=== PATIENT | female | born 1990 | race Caucasian/White ===

== ENCOUNTER → 2017-08-06 | Outpatient (REF) | payer BC | LOC: M SFHCLERA 11:41 | DX: R10.84 Generalized abdominal pain (principal) | CPT/HCPCS: 87086 ==

== ENCOUNTER → 2017-11-05 | Outpatient (REF) | payer BC | LOC: M LAB REF 17:33 | DX: Z12.4 Encounter for screening for malignant neoplasm of cervix (principal) | CPT/HCPCS: G0123 ==

== ENCOUNTER → 2018-02-04 | Outpatient (REF) | payer BC ==
[2018-02-04 20:42] LABS: ANION GAP 9 MEQ/L (8-16); BLOOD UREA NITROGEN 18 MG/DL (7-18); CALCIUM LEVEL 8.8 MG/DL (8.5-10.1); CARBON DIOXIDE LEVEL 28 MEQ/L (21-32); CHLORIDE LEVEL 104 MEQ/L (98-107); CREATININE FOR GFR 0.76 MG/DL (0.55-1.30); GLOMERULAR FILTRATION RATE > 60.0 (>60); GLUCOSE, FASTING 82 MG/DL (70-100); POTASSIUM SERUM 4.2 MEQ/L (3.5-5.1); SODIUM LEVEL 141 MEQ/L (136-145)
== END ==
LOC: M SFHCLERA 17:20
DX: F43.22 Adjustment disorder with anxiety (principal)
CPT/HCPCS: 84443

== ENCOUNTER → 2018-08-14 | Outpatient (CLI) | payer OTHER ==
[2018-08-15 12:10] LABS: FOLLICLE STIMULATING HORMONE 13.6 mIU/mL; LUTEINIZING HORMONE 15.8 mIU/mL; PROGESTERONE 1.16 NG/ML
[2018-08-15 14:50] LABS: PROLACTIN 11.9 NG/ML
== END ==
LOC: M LRY 17:12
PROVIDERS: ATTEND Specialist
DX: N93.8 Other specified abnormal uterine and vaginal bleeding (principal)

== ENCOUNTER → 2018-09-23 | Outpatient (CLI) | payer OTHER ==
[2018-09-23 13:20] LABS: BASO % 0.2 % (0.0-1.0); EOS # 0.1 10^3/uL (0.0-0.50); EOS % 0.7 % (0.0-3.0); HEMOGLOBIN 12.2 g/dl (12.0-15.5); LYMPH # 2.2 10^3/uL (1.5-6.5); LYMPH % 26.2 % (24.0-44.0); MEAN CORPUSCULAR HEMOGLOBIN 29.2 pg (27.0-33.0); MEAN CORPUSCULAR VOLUME 88.5 fl (80.0-96.0); MONO # 0.8 10^3/uL (0.0-0.8); MONO % 9.5 % (0.0-5.0); NEUTROPHILS # 5.2 10^3/uL (1.8-7.7); NEUTROPHILS % 63.3 % (36.0-66.0); PLATELET COUNT, AUTOMATED 257 10^3/uL (150-450); RED BLOOD COUNT 4.18 10^6/uL (4.00-5.40); WHITE BLOOD COUNT 8.3 10^3/uL (4.0-10.0)
[2018-09-23 14:45] LABS: CHLAMYDIA DNA AMPLIFICATION NEGATIVE (NEGATIVE); GC DNA AMPLIFICATION NEGATIVE (NEGATIVE)
[2018-09-24 10:56] LABS: HEPATITIS C VIRUS ABY INDEX 0.1 INDEX (<0.8); HIV 1&2 SCREEN CENTAUR NEGATIVE (NEGATIVE); RUBELLA IgG QUALITATIVE IMMUNE (IMMUNE)
== END ==
LOC: M SMT 09:32
PROVIDERS: ATTEND Specialist
DX: Z34.81 Encounter for supervision of other normal pregnancy, first trimester (principal); Z3A.01 Less than 8 weeks gestation of pregnancy; Z36.89 Encounter for other specified antenatal screening

== ENCOUNTER → 2018-10-29 | Outpatient (CLI) | payer OTHER | LOC: M SMT 13:03 | PROVIDERS: ATTEND Specialist | DX: Z34.81 Encounter for supervision of other normal pregnancy, first trimester (principal); Z3A.00 Weeks of gestation of pregnancy not specified ==

== ENCOUNTER → 2018-12-11 | Outpatient (CLI) | payer OTHER ==
--- NOTE | 2018-12-11 19:16 | REP ---
Obstetric sonography: History: Supervision of for anatomy. Findings: Scanning through the gravid uterus demonstrates a viable single intrauterine gestation in variable lie. motion is observed and heart rate is recorded at 150 beats per minute. A posterior grade 1 placenta is seen without evidence of previa. Amniotic fluid is subjectively normal. No extrauterine abnormalities observed. There is a small left sided choroid plexus cyst. No other abnormality is observed. The following anatomic structures are identified and felt to be sonographically unremarkable: cranium, cavum, cerebellum and posterior fossa, face and profile, lungs, four-chamber heart with left and right ventricular outflow tract views, diaphragm, left-sided stomach, abdominal wall cord insertion, three-vessel umbilical cord, kidneys and bladder, spine, upper and lower extremities. Biometry chart: BPD 4.5 cm = 19 weeks 4 days HC 16.5 cm = 19 weeks 1 day AC 15.0 cm = 20 weeks 1 day FL 3.1 cm = 19 weeks 4 days HL 2.9 cm = 19 weeks 4 days HC/AC ratio normal 1.10. Cephalic index normal 0.76. Estimated weight 315 grams, 0 pounds 11 ounces, 91st percentile for 18 weeks 5 days. Impression: Viable single intrauterine gestation at 19 weeks 4 days by today's composite sonographic criteria. STEPHANIE by today's sonography May 03, 2019. A small left choroid plexus cyst is seen. anatomic survey is otherwise negative and felt to be complete. Electronically Signed by Brandyn Santamaria MD 12/11/2018 08:01 P
== END ==
LOC: M RAD 16:43
PROVIDERS: ATTEND Specialist
DX: Z34.82 Encounter for supervision of other normal pregnancy, second trimester (principal); Z3A.19 19 weeks gestation of pregnancy

== ENCOUNTER → 2019-01-21 | Outpatient (REF) | payer OTHER | LOC: M LAB REF 17:07 | PROVIDERS: ATTEND Advanced Practice Midwife | DX: Z34.82 Encounter for supervision of other normal pregnancy, second trimester (principal) ==

== ENCOUNTER → 2019-02-06 | Outpatient (CLI) | payer OTHER ==
[2019-02-06 17:13] LABS: BASO % 0.3 % (0.0-1.0); EOS # 0.1 10^3/uL (0.0-0.50); EOS % 1.1 % (0.0-3.0); HEMATOCRIT 34.8 % (36.0-47.0); HEMOGLOBIN 11.4 g/dl (12.0-15.5); LYMPH # 1.7 10^3/uL (1.5-6.5); LYMPH % 15.4 % (24.0-44.0); MEAN CORPUSCULAR HEMOGLOBIN 30.7 pg (27.0-33.0); MEAN CORPUSCULAR HGB CONC 32.8 g/dl (32.0-36.5); MEAN CORPUSCULAR VOLUME 93.8 fl (80.0-96.0); MONO # 0.8 10^3/uL (0.0-0.8); MONO % 7.4 % (0.0-5.0); NEUTROPHILS # 8.1 10^3/uL (1.8-7.7); NEUTROPHILS % 75.1 % (36.0-66.0); PLATELET COUNT, AUTOMATED 248 10^3/uL (150-450); RED BLOOD COUNT 3.71 10^6/uL (4.00-5.40); WHITE BLOOD COUNT 10.8 10^3/uL (4.0-10.0)
== END ==
LOC: M LRY 10:50
PROVIDERS: ATTEND Advanced Practice Midwife
DX: Z34.82 Encounter for supervision of other normal pregnancy, second trimester (principal); Z36.89 Encounter for other specified antenatal screening

== ENCOUNTER → 2019-04-14 | Outpatient (CLI) | payer OTHER | LOC: M SMT 15:58 | PROVIDERS: ATTEND Specialist | DX: Z36.89 Encounter for other specified antenatal screening (principal) ==

== ENCOUNTER 2019-05-07 19:11 | Inpatient (IN) | payer OTHER ==
[2019-05-07] VITALS (8 sets, daily range): BP systolic 118–160; BP diastolic 59–80
[~2019-05-07] VITALS: Ht 162.6 cm; Wt 95.8 kg
[2019-05-07] MEDS ORDERED: LACTATED RINGER'S 1000 ML IV STA (19:50)
[2019-05-07] MEDS: LR 1,000 ML IV SCH (20:03)
[2019-05-07] MEDS ORDERED: PRENTAB77 PO (20:11)
[2019-05-07] MEDS ORDERED: GNP250TA9 PO (20:11)
[2019-05-07] MEDS ORDERED: ASPI81TA85 PO (20:11)
[2019-05-07] MEDS ORDERED: TUMS500C PO (20:11)
[2019-05-07 20:16] LABS: HEMOGLOBIN 11.8 g/dl (12.0-15.5); RED BLOOD COUNT 3.91 10^6/uL (4.00-5.40); WHITE BLOOD COUNT 12.1 10^3/uL (4.0-10.0)
[2019-05-07 20:17] LABS: MEAN CORPUSCULAR HEMOGLOBIN 30.2 pg (27.0-33.0); MEAN CORPUSCULAR HGB CONC 33.7 g/dl (32.0-36.5); MEAN CORPUSCULAR VOLUME 89.5 fl (80.0-96.0); PLATELET COUNT, AUTOMATED 232 10^3/uL (150-450)
[2019-05-07] MEDS: miSOPROStol 50 MCG 1/2 TAB (S0191) PO SCH (20:34)
[2019-05-07 20:47] LABS: ALT/SGPT 17 U/L (12-78); BILIRUBIN,TOTAL 0.4 MG/DL (0.2-1.0); CREATININE FOR GFR 0.54 MG/DL (0.55-1.30); GLOMERULAR FILTRATION RATE > 60.0 (>60); LDH LACTATE DEHYDROGENASE 218 U/L (84-246); URIC ACID 4.6 MG/DL (2.6-6.0)
[2019-05-07 22:01] LABS: CREATININE,RANDOM URINE 73.5 MG/DL
[2019-05-08] VITALS (52 sets, daily range): BP systolic 87–207; BP diastolic 51–88
[2019-05-08] MEDS: miSOPROStol 50 MCG 1/2 TAB (S0191) PO SCH (02:58)
[2019-05-08] MEDS ORDERED: LR 1,000 ML IV SCH (08:04)
--- NOTE | 2019-05-08 08:04 | IPNPDOC ---
Text Note Date of Service The patient was seen on 05/08/19. NOTE Progress Irregular mild UC, pt states she can feel them at this time Cat I tracing SVE /-2 Cooks catheter placed Will start pitocin after breakfast VS,Fishbone, I+O VS, Fishbone, I+O Laboratory Tests 05/07/19 20:04 Vital Signs Date Time Temp Pulse Resp B/P (MAP) Pulse Ox O2 Delivery O2 Flow Rate FiO2 05/08/19 06:38 76 18 132/64 (86) 05/08/19 05:35 97.9 I&O- Last 24 Hours up to 6 AM 05/08/19 06:00 Intake Total 500 ml Balance 500 ml Madison Melgar CNM May 08, 2019 08:04
[2019-05-08] MEDS ORDERED: OXYTOCIN DRIP 30 UNITS in IV 1 EA IV SCH (08:15)
[2019-05-08] MEDS ORDERED: PROMETHAZINE INJ 25 MG/ML VIAL (J2550) IV ONE (09:30)
[2019-05-08] MEDS ORDERED: BUTORPHANOL 2 MG/ML INJ (J0595) IV ONE (09:30)
[2019-05-08] MEDS: LR 1,000 ML IV SCH (09:54)
[2019-05-08] MEDS ORDERED: FENTANYL 2MCG/ML ROPIVACAINE 0.2% IN 0.9% NACL 100ML IVBAG As Ordered ONE (11:53)
[2019-05-08 12:33] LABS: HEMATOCRIT 37.9 % (36.0-47.0); HEMOGLOBIN 12.4 g/dl (12.0-15.5); MEAN CORPUSCULAR HEMOGLOBIN 29.7 pg (27.0-33.0); MEAN CORPUSCULAR HGB CONC 32.7 g/dl (32.0-36.5); MEAN CORPUSCULAR VOLUME 90.9 fl (80.0-96.0); PLATELET COUNT, AUTOMATED 224 10^3/uL (150-450); RED BLOOD COUNT 4.17 10^6/uL (4.00-5.40)
[2019-05-08] MEDS ORDERED: ONDANSETRON 4MG/2ML VIAL (J2405) IV PRN (13:30)
[2019-05-08] MEDS ORDERED: REFRIGERATOR IV KEYS XX PRN (13:30)
[2019-05-08] MEDS ORDERED: diphenhydrAMINE INJ 50MG/ML VIAL (J1200) IV PRN (13:30)
[2019-05-08] MEDS ORDERED: FENTANYL/ROPIVACAINE/NACL BAG 100 ML EPIDURAL SCH (13:30)
[2019-05-08] MEDS ORDERED: EPIDURAL/PCA KEYS XX PRN (13:30)
[2019-05-08] MEDS ORDERED: NALOXONE INJ 0.4 MG/1 ML VIAL (J2310) IV PRN (13:30)
[2019-05-08] MEDS ORDERED: LACTATED RINGER'S 1000 ML IV PRN (13:30)
[2019-05-08] MEDS ORDERED: ePHEDrine SULFATE 25 MG/5 ML(5MG/ML) SYRINGE IV PRN (13:30)
[2019-05-08] MEDS ORDERED: EPIDURAL COMMENT XX SCH (13:30)
--- NOTE | 2019-05-08 17:29 | IPNPDOC ---
Text Note Date of Service The patient was seen on 05/08/19. NOTE Comfortable with epidural. Reports feeling pressure Pitocin @ 6mu UC 3-4 minutes x 60+ seconds FH 145, Cat I SVE 9/100/-1, AROM moderate clear fluids VS,Fishbone, I+O VS, Fishbone, I+O Laboratory Tests 05/07/19 20:04 05/08/19 12:23 Vital Signs Date Time Temp Pulse Resp B/P (MAP) Pulse Ox O2 Delivery O2 Flow Rate FiO2 05/08/19 16:46 114 18 129/58 (81) 05/08/19 15:53 99.7 05/08/19 09:54 Room Air I&O- Last 24 Hours up to 6 AM 05/08/19 06:00 Intake Total 500 ml Balance 500 ml Madison Melgar CNM May 08, 2019 17:29
[2019-05-08 23:23] LABS: CORD GAS ABE A -8.3; CORD GAS HCO3 A 19.7 MEQ/L; CORD GAS O2 SAT A 46.8 %; CORD GAS PCO2 A 49.2 mmHg; CORD GAS PH A 7.22 UNITS; CORD GAS PO2 A 23.7 mmHg; CORD GAS SBC A 16.8 MEQ/L; CORD GAS TCO2 A 21.2 MEQ/L
[2019-05-08 23:23] LABS: CORD GAS ABE V -5.6; CORD GAS HCO3 V 17.8 MEQ/L; CORD GAS PCO2 V 29.8 mmHg; CORD GAS PH V 7.395 UNITS; CORD GAS SBC V 19.6 MEQ/L; CORD GAS TCO2 V 18.8 MEQ/L
[2019-05-08] MEDS ORDERED: ceFAZolin 2 GM/D5W 50 ML IV BAG (J0690 PER 500MG) As Ordered ONE (23:50)
[2019-05-09] VITALS (16 sets, daily range): BP systolic 111–137; BP diastolic 60–84
[2019-05-09] MEDS ORDERED: ceFAZolin SOD 2 GM in IV 1 EA IV ONE ×2
[2019-05-09] MEDS ORDERED: MOM 30ML SUSPENSION UDC PO PRN (00:15)
[2019-05-09] MEDS ORDERED: MEASLES,MUMPS,RUBELLA VACCINE INJ (MMR-II) (90707) SC SCH (00:15)
[2019-05-09] MEDS ORDERED: METHYLERGONOVINE MALEATE 0.2 MG TAB PO PRN (00:15)
[2019-05-09] MEDS ORDERED: DIBUCAINE 1% OINTMENT 30GM TOP PRN (00:15)
[2019-05-09] MEDS ORDERED: ANUSOL HC CREAM 30GM TOP PRN (00:15)
[2019-05-09] MEDS ORDERED: ACETAMINOPHEN TAB 650MG DOSE (2X325MG) PO PRN (00:15)
--- NOTE | 2019-05-09 00:25 | DNPDOC ---
[facility] Delivery Note Delivery Note DATE OF DELIVERY: 05/08/2019 PREDELIVERY DIAGNOSIS: 39-6/7 weeks' gestation and labor. POST DELIVERY DIAGNOSIS: Delivered. PROCEDURE: Spontaneous vaginal delivery. PROVIDER: Madison Melgar CNM ANESTHESIA: Epidural. ESTIMATED BLOOD LOSS: 1650 mL. FINDINGS: 8 pound 11 ounce, 3950gm female , Score 9/9, no nuchal cord. Compound presentation with right posterior arm DELIVERY SUMMARY: Patient is a 29-year-old 2 now para 1-0-1-1 who was admitted to labor and delivery for induction of labor due to gestational hypertension. She received misoprostol, cooks catheter with pitocin and labor did ensue. She utilized an epidural for labor coping. AROM moderate clear fluid 1724. FD 2130. Viable female child delivered without difficulty, GERMAIN restituting to ROP with compound right posterior arm at 2255. Spontaneous respirations, transitioned on maternal abdomen. Cord gases obtained and are pending. Cord doubly clamped and cut by FOB under my direction once pulsations ceased. Apgars 9/9. Placenta delivered whipple, intact with 3v cord 2306. Brisk bleeding persisted despite bimanual massage and IV pitocin. Misoprostol 1000mcg NJ given with good control of bleeding. 4th degree perineal laceration noted. Dr Darby requested to repair. Total EBL following repair 1650ml. Sponge, sharp and instrument count correct at close of procedure. Madison Melgar CNM May 08, 2019 23:26
[2019-05-09] MEDS ORDERED: METHYLERGONOVINE MALEATE 0.2 MG/ML VIAL (J2210) IM ONE (01:00)
[2019-05-09] MEDS ORDERED: miSOPROStol 200 MCG TAB (S0191) PR ONE (01:00)
[2019-05-09] MEDS ORDERED: RHOGAM 300 MCG (1500 IU) INJ (J2790) IM SCH (01:00)
[2019-05-09] MEDS ORDERED: OXYTOCIN DRIP 30 UNITS in IV 1 EA IV SCH (01:00)
[2019-05-09] MEDS ORDERED: ACETAMINOPHEN 500 MG TAB PO PRN (01:00)
[2019-05-09] MEDS ORDERED: IBUPROFEN 800 MG TAB As Ordered ONE (02:14)
[2019-05-09] MEDS: IBUPROFEN 800 MG TAB PO SCH ×3 (02:17→22:14)
[2019-05-09 06:51] LABS: HEMATOCRIT 27.5 % (36.0-47.0); MEAN CORPUSCULAR HEMOGLOBIN 30.2 pg (27.0-33.0); MEAN CORPUSCULAR HGB CONC 33.1 g/dl (32.0-36.5); MEAN CORPUSCULAR VOLUME 91.4 fl (80.0-96.0); PLATELET COUNT, AUTOMATED 181 10^3/uL (150-450); RED BLOOD COUNT 3.01 10^6/uL (4.00-5.40); WHITE BLOOD COUNT 20.6 10^3/uL (4.0-10.0)
[2019-05-09 06:54] LABS: HEMOGLOBIN 9.1 g/dl (12.0-15.5)
[2019-05-09] MEDS: METHYLERGONOVINE MALEATE 0.2 MG TAB PO SCH ×4 (07:20→23:45)
--- NOTE | 2019-05-09 07:59 | IPNPDOC ---
Text Note Date of Service The patient was seen on 05/09/19. NOTE PP #1 Adequate pain management. Reports mild dizziness. to breast. VSS, afebrile normotensive Breasts soft, nipples intact Fundus firm, NT, @U Perineum well approximated without edema Lochia rubra light without odor PP #1 Enc rest, PO intake, slow increase of activity, maintain ice to perineum first 24hrs VS,Fishbone, I+O VS, Fishbone, I+O Laboratory Tests 05/08/19 12:23 05/09/19 06:38 Vital Signs Date Time Temp Pulse Resp B/P (MAP) Pulse Ox O2 Delivery O2 Flow Rate FiO2 05/09/19 06:52 80 121/73 (89) 05/09/19 03:22 99.1 16 05/08/19 09:54 Room Air I&O- Last 24 Hours up to 6 AM 05/09/19 06:00 Intake Total 2431 ml Output Total 1850 ml Balance 581 ml Madison Melgar CNM May 09, 2019 07:59
[2019-05-09] MEDS: LR 1,000 ML IV SCH ×2 (08:10→15:45)
[2019-05-09] MEDS: DOCUSATE SODIUM 100 MG CAP PO SCH ×2 (09:08→22:13)
[2019-05-09] MEDS: PRENATAL VITAMINS CHEWABLE TABLET PO SCH (09:08)
[2019-05-10 06:00] VITALS: BP 127/58
[2019-05-10] MEDS: IBUPROFEN 800 MG TAB PO SCH ×2 (06:02→13:58)
[2019-05-10] MEDS: PRENATAL VITAMINS CHEWABLE TABLET PO SCH (09:26)
[2019-05-10] MEDS: DOCUSATE SODIUM 100 MG CAP PO SCH (09:26)
--- NOTE | 2019-05-10 09:47 | RO ---
DATE OF PROCEDURE: 05/09/2019 PREOPERATIVE DIAGNOSIS: 1. Status post spontaneous vaginal delivery. 2. Fourth-degree peritoneal laceration. POSTOPERATIVE DIAGNOSIS: 1. Status post spontaneous vaginal delivery. 2. Fourth-degree peritoneal laceration. PROCEDURE PERFORMED: Repair of a 4 degree laceration. SURGEON: Kathryn Darby MD PREOPERATIVE ANTIBIOTICS: 2 grams of Ancef. ESTIMATED BLOOD LOSS: Total including delivery 1650 mL. ANESTHESIA: Epidural. DESCRIPTION OF OPERATION: After informed consent was obtained, the patient was examined and she was noted to have a fourth degree laceration with a small area of the vaginal mucosa involved. The laceration was cleaned. Ludlow was identified. The internal anal sphincter was then identified with Allis clamps. Three stitches of #0 Vicryl was stitched to the internal anal sphincter. These three stitches were tagged and this was done with #0 Vicryl. The vaginal mucosa was then reapproximated with #4-0 Monocryl and three stitches on the internal anal sphincter were then tied. The external anal sphincter was then reapproximated with #0 Vicryl. The remainder of the laceration was repaired with #3-0 Vicryl Rapide. Rectal exam was performed and the end of the repair. The patient tolerated the repair.
[2019-05-10 10:28] VITALS: BP 127/67
== END 2019-05-10 15:55 | disposition home or self-care (01) | DRG 768 ==
LOC: M LDI 19:11 → M OBS 05-09 10:44
PROVIDERS: ADMIT Obstetrics & Gynecology; ATTEND Obstetrics & Gynecology
PROC: 3E0P7GC Introduction of Other Therapeutic Substance into Female Reproductive, Via Natural or Artificial Opening (ICD-10-PCS; 2019-05-07)
PROC: 10E0XZZ Delivery of Products of Conception, External Approach (ICD-10-PCS; principal; 2019-05-08)
PROC: 10907ZC Drainage of Amniotic Fluid, Therapeutic from Products of Conception, Via Natural or Artificial Opening (ICD-10-PCS; 2019-05-08)
PROC: 0DQP0ZZ Repair Rectum, Open Approach (ICD-10-PCS; 2019-05-09)
DX: O14.04 Mild to moderate pre-eclampsia, complicating childbirth (principal); Z37.0 Single live birth; Z3A.39 39 weeks gestation of pregnancy; O64.5XX0 Obstructed labor due to compound presentation, not applicable or unspecified; O70.4 Anal sphincter tear complicating delivery, not associated with third degree laceration

== ENCOUNTER → 2020-02-19 | Outpatient (REF) | payer OTHER ==
[~2020-02-19] MED LIST: ASPI81TA86 PO; GNP250TA9 PO; PRENTAB77 PO; TUMS500C PO
== END ==
LOC: M SFHCLERA 17:34
PROVIDERS: ATTEND Nurse Practitioner Family
DX: N30.00 Acute cystitis without hematuria (principal)
CPT/HCPCS: 87088; 87186; G0463